=== PATIENT | female | born 1980 | race Caucasian/White ===

== ENCOUNTER 2025-04-08 15:36 | Emergency (ER) | payer OTHER ==
[2025-04-08 15:41] VITALS: BP 131/80; PULSE 56; RESP 19; TEMP 98.4; BMI 19.5
== END 2025-04-08 17:08 | disposition home or self-care (01) ==
LOC: JERFT 15:36
DX: R09.A9 Foreign body sensation, other site (principal); S31.823A Puncture wound without foreign body of left buttock, initial encounter; W45.8XXA Other foreign body or object entering through skin, initial encounter
CPT/HCPCS: 99283-25